=== PATIENT | male | born 1995 | race Two or more races ===

== ENCOUNTER 2023-03-24 09:36 | Emergency (ER) | payer OTHER ==
[~2023-03-24] VITALS: Ht 177.8 cm; Wt 68.0 kg
[2023-03-24 16:46] LABS: HEMATOCRIT 41.4 % (39.0-48.0); HEMOGLOBIN 14.3 g/dL (13-16.00); MEAN CELL VOLUME 88.6 fL (80.0-100.00); MEAN CORPUSCULAR HEMOGLOBIN 30.7 pg (27.00-32.0); MEAN CORPUSCULAR HGB CONC 34.6 g/dl (32.0-36.0); PLATELET COUNT 207 K/uL (150-450); RED BLOOD COUNT 4.67 M/uL (4.00-6.00); RED CELL DISTRIBUTION WIDTH 13.4 % (11.5-14.5)
[2023-03-24 17:17] LABS: CALCIUM 8.9 mg/dL (8.5-10.1); CREATININE SERUM 0.75 mg/dL (0.70-1.30); GFR 126.89; POTASSIUM 4.33 mEq/L (3.5-5.1)
== END 2023-03-24 18:14 | disposition home or self-care (01) ==
LOC: ER 09:36
PROVIDERS: General Practice
DX: K12.2 Cellulitis and abscess of mouth (principal)